=== PATIENT | male | born 1975 | race Caucasian/White ===

== ENCOUNTER 2019-07-06 08:22 | Outpatient (CLI) | payer OTHER, SELFPAY ==
--- NOTE | 2019-07-06 08:32 | MR_ITS ---
WS: [id number] MRI CERVICAL SPINE NONCONTRAST TECHNIQUE: Sagittal T1, T2 and STIR imaging. Axial T2, gradient, and fiesta imaging. CLINICAL INFORMATION: ULNAR NERVE ENTRAPMENTS;ARM NUMBNESS COMPARISON: None. FINDINGS: Straightening of the normal cervical lordosis. No high-grade central canal narrowing. Cord signal is normal. C2-C3: Normal. C3-C4: Normal. C4-C5: No significant disc bulging. Mild facet arthropathy. Spinal canal and foramen are patent. C5-C6: No significant disc bulging. Minimal left and no significant right foraminal narrowing. Mild f acet arthropathy. C6-C7: No significant disc bulging. Minimal bilateral proximal foraminal narrowing. Spinal canal is p atent. Mild facet arthropathy. C7-T1: Left eccentric disc osteophyte ridging with mild to moderate left foraminal narrowing. Contact of the exiting left C8 nerve root. Recommend correlation for left C8 nerve root symptoms. Right fora men is patent. Spinal canal is patent Visualized brain stem structures: Normal. Prevertebral soft tissues: Normal. MR/MR cervical spin wo con* [id number] IMPRESSION: 1. Straightening of the normal cervical lordosis. Cord signal is normal. 2. Left eccentric disc osteophyte complex C7-T1 with mild to moderate left for aminal narrowing. Contact of the exiting left C8 nerve root. Recommend correlat ion for left C8 nerve root symptoms. 3. Mild facet arthropathy C5-C6 and C6-C7 with minimal left C5-C6 and C6-C7 pr oximal foraminal narrowing.
== END 2019-07-06 08:23 | disposition home or self-care (01) ==
LOC: RADSHAW 08:25
PROVIDERS: Family Provider Family Medicine; PCP Family Medicine; Visit Provider Neurological Surgery
DX: G56.20 Lesion of ulnar nerve, unspecified upper limb (principal); R20.0 Anesthesia of skin; M47.812 Spondylosis without myelopathy or radiculopathy, cervical region
CPT/HCPCS: 72141

== ENCOUNTER 2019-10-25 14:25 | Emergency (ER) | payer SELFPAY ==
[2019-10-25 14:27] VITALS: BP 145/95; PULSE 111; RESP 17; TEMP 36.4; O2SAT 97; BMI 33.0
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
[2019-10-25] MEDS: HYDROcodone-acetaminophen 5-325 mg Tablet 1 TAB PO (15:00)
--- NOTE | 2019-10-25 15:14 | PC.NURSE ---
patient returned from ct
[2019-10-25 16:19] VITALS: BP 141/87; PULSE 99; RESP 20; O2SAT 98
== END 2019-10-25 16:20 | disposition home or self-care (01) ==
PROVIDERS: Emergency Provider Emergency Medicine; PCP Family Medicine
DX: S13.4XXA Sprain of ligaments of cervical spine, initial encounter (principal); S40.012A Contusion of left shoulder, initial encounter; V89.2XXA Person injured in unspecified motor-vehicle accident, traffic, initial encounter
CPT/HCPCS: 12345; 70450; 71045; 72125; 73030; 99281; 99283

== ENCOUNTER 2020-03-12 18:16 | Emergency (ER) | payer OTHER, SELFPAY ==
[2020-03-12 18:24] VITALS: BP 134/84; PULSE 78; RESP 16; TEMP 36.6; O2SAT 98; BMI 33.0
--- NOTE | 2020-03-12 18:33 | W.ED.EXTPRO ---
HPI - Extremity Problem General: Chief complaint: Extremity Problem,Nontraumatic Stated complaint: SHARP PAINS DOWN R LEG Time Seen by Provider: 03/12/20 18:32 History of Present Illness: HPI Narrative: Patient is a 45-year-old male comes to the ED with nontraumatic pain right and left legs. Patient says yesterday while he was at work he felt some pain in his right calf. Pain went away later that night and then while he was sleeping he was awoken with pain in his right leg that went up from his knee into his thigh. He says the pain is 5 out of 10 but will shoot up to a more intense level briefly when he is up and moving around or even when he is just sitting. Denies any chest pain, shortness of breath or hemoptysis. Patient says his left leg is starting to feel his right leg. He states he does have a history of blood clot in his left upper extremity but is not on any blood thinners currently. Denies any bleeding or clotting disorders. Associated symptoms: Deny chest pain, fever(s) or rash Review of Systems Const: Denies: fever(s), chills or fatigue Eyes: Denies: change in vision or eye discomfort ENMT: Denies: throat pain, odynophagia, nasal discharge or nasal congestion Card: Denies: chest pain, palpitations, edema, swelling of feet/ankles, dyspnea on exertion or orthopnea Resp: Denies: dyspnea, productive cough or non-productive cough GI: Denies: abdominal pain, nausea, vomiting, diarrhea, constipation or hematochezia : Denies: flank pain, difficulty urinating, dysuria or hematuria Musc: Reports: extremity pain (Right and left lower extremity pain, nontraumatic.); Denies: neck pain, back pain or extremity swelling Skin/Breast: Denies: rash or new lesions Neuro: Denies: headache(s), numbness in extremities or weakness in extremities PFSH ED PFSH: Social History Smoking and tobacco status: never smoked Physical Exam Const: COMMON NORMALS: patient oriented x3 HENMT: COMMON NORMALS: normocephalic HEAD & SCALP: normocephalic MOUTH: Normal oral and palatal mucosa present THROAT: posterior oropharynx normal and uvula midline Neck/C-Spine: COMMON NORMALS: supple GENERAL: Yes normal visual inspection Resp: COMMON NORMALS: normal respiratory effort, No retractions, No use of accessory muscles and clear to auscultation bilaterally AUSCULTATION: clear to auscultation bilaterally Cardio: COMMON NORMALS: regular rate, regular rhythm, S1 normal heart sound present, S2 normal heart sound present, No gallops present (Cardio), No clicks present (Cardio), No murmurs present (Cardio) and Peripheral pulses 2+ throughout RATE: regular rate RHYTHM: regular rhythm HEART SOUNDS: S1 normal heart sound present and S2 normal heart sound present PERIPHERAL PULSES: Peripheral pulses 2+ throughout GI: COMMON NORMALS: Normal to inspection, nondistended, normoactive bowel sounds present, Soft to palpation, non-tender and no masses PALPATION: Yes Soft to palpation : COMMON NORMALS: Yes no CVA tenderness BLADDER/KIDNEY EXAM: Yes no CVA tenderness Back/Pelvis: COMMON NORMALS: no CVA tenderness Extremity: COMMON NORMALS: full ROM and no pedal edema; negative for no calf tenderness GENERAL: Yes normal exam except as noted and Yes calf tenderness (Right lower extremity. No calf tenderness on the left lower extremity.) Neuro: COMMON NORMALS: patient oriented x3 and moves all extremities Skin: COMMON NORMALS: no rashes or lesions noted GENERAL SKIN EXAM: no rashes or lesions noted and dry skin Course Vital Signs: Vital signs: Vital Signs Temperature 97.8 F 03/12/20 18:24 Pulse Rate 78 03/12/20 19:59 Respiratory Rate 18 03/12/20 19:59 Blood Pressure 125/72 03/12/20 19:59 Pulse Oximetry 98 03/12/20 19:59 MDM - Extremity (Nontraumatic) MDM Narrative: Medical decision making narrative: Patient is a 45-year-old male comes to the ED with nontraumatic right and left leg pain. He reports having right calf pain and tenderness. He says his left leg is starting to develop the same pain as is the right. Patient says he has a history of having a blood clot in his left arm. Denies chest pain, shortness of breath or hemoptysis. Physical exam showed a healthy patient in no acute distress. He had some tenderness to his right calf. Ultrasound venous duplex was performed bilaterally and results showed no DVTs or blood clots seen. Patient was discharged and told to follow-up with PCP in 7 to 10 days. Continue taking previously prescribed pain medications from pain management. return to ED precautions given. Patient understood and agreed with plan. Imaging Data^: US Vascular: Attestation: I personally reviewed and interpreted this imaging study as follows: Radiologist's impression: Ultrasound venous duplex lower extremities bilateral?prelim report?no DVTs or blood clots seen. Discharge Plan Discharge Patient Disposition: Home Clinical Impression: Pain in right leg Condition: Stable Prescriptions: No Action Robaxin-750 750 mg tablet 750 mg PO Q6H Qty: 30 RF: 0 Naprosyn 500 mg tablet 500 mg PO BID PRN (Reason: pain) Qty: 20 RF: 0 Discharge Orders: Discharge Order (Routine); Ordered 03/12/20 Ordered By: Reilly Beckman Referrals: Alvaro Ramon [Primary Care Provider] - Discharge Diet: Regular Discharge Activity: Increase activity as tolerated Activity Restrictions/Additional Instructions: Ultrasound of right and left lower extremity showed no blood clot/DVT. Follow-up with medical provider as directed in 7-10 days. Continue taking your previously prescribed pain medications. Rest, ice and elevate leg to help with symptoms. Return to the ER or your medical provider if condition worsens. Please read and understand discharge instructions. If any questions, please ask. Discharge Date/Time: 03/12/20 19:59 Coding Level of Care Code ED Hat Block Bench Hand for Joel Fwvidal Exam Comprehensive
--- NOTE | 2020-03-12 18:52 | USCV_ITS ---
Magdy Bermudez Age: 45 Gender: M : 1975 Exam Date: 03/12/2020 19:39 Ordering Phys: Reilly Beckman Technologist: Petr Becerra Exam Location: [facility] Indication: BILAT EDEMA HISTORY: Lower extremity swelling. PROCEDURES: The venous duplex Doppler examination of both lower extremities was performed in the standard fashion. The following venous structures were evaluated: common femoral vein, profunda vein, proximal portion of the greater saphenous vein, superficial femoral vein, and the popliteal vein. Bilaterally, the common femoral, superficial femoral, profunda femoral, popliteal, posterior tibial, greater saphenous veins, and the peroneal trunk were identified and interrogated in the standard fashion. These veins were found to be easily compressible with spontaneous blood flow. No evidence of insufficiency or thrombus noted. FINDINGS: Normal 2-D Doppler and augmentation and compressibility throughout the lower extremity venous structures. Additional imaging through the proximal calf veins also reveals no thrombus. Limited evaluation of the greater saphenous vein is patent with no thrombus.. CONCLUSIONS No evidence of DVT in the above-mentioned identifiable veins. Dr Murali Zapata MD [facility] (Electronically Signed) Final Date: 14 March 2020 08:19 S
[2020-03-12 19:17] VITALS: BP 120/81; PULSE 71; RESP 14; O2SAT 98
[2020-03-12 19:59] VITALS: BP 125/72; PULSE 78; RESP 18; O2SAT 98
== END 2020-03-12 19:59 | disposition home or self-care (01) ==
PROVIDERS: Emergency Provider Physician Assistant; PCP Family Medicine
DX: M79.604 Pain in right leg (principal)
CPT/HCPCS: 12345; 93970; 99281; 99282

== ENCOUNTER → 2024-02-23 08:13 | Outpatient (BNVA) | payer OTHER, SELFPAY | PROVIDERS: PCP Family Medicine; Referring Provider Family Medicine; Visit Provider Internal Medicine | DX: E78.5 Hyperlipidemia, unspecified; E11.40 Type 2 diabetes mellitus with diabetic neuropathy, unspecified; Z79.84 Long term (current) use of oral hypoglycemic drugs | CPT/HCPCS: 99204 ==

== ENCOUNTER → 2024-08-19 09:16 | Outpatient (BNVA) | payer OTHER, SELFPAY | PROVIDERS: PCP Family Medicine; Visit Provider Internal Medicine | DX: E11.9 Type 2 diabetes mellitus without complications (principal); E78.5 Hyperlipidemia, unspecified | CPT/HCPCS: 99214 ==